=== PATIENT | female | born 1990 | race Hispanic/Latino ===

== ENCOUNTER 2023-03-13 14:14 | Observation (INO) | payer BC ==
[~2023-03-13] VITALS: Ht 152.4 cm; Wt 59.0 kg
[2023-03-13 14:26] VITALS: O2SAT 99
[2023-03-13] MEDS ORDERED: ONDANSETRON 4MG INJ 8 MG in 0.9%NACL 50ML 50 ML IVP PRN (15:00)
[2023-03-13] MEDS: LACTATED RINGERS 1000ML 1,000 ML IV SCH (15:23)
[2023-03-13 15:30] VITALS: BP 103/72
[2023-03-13] MEDS ORDERED: ONDANSETRON 4MG INJ IVP PRN (15:30)
[2023-03-13 16:22] LABS: INFLUENZA TYPE A Negative For Type A (NEGATIVE); INFLUENZA TYPE B Negative For Type B (NEGATIVE)
[2023-03-13] MEDS ORDERED: PANTOPRAZOLE 40 MG/VIAL IVP SCH (17:00)
[2023-03-13 19:50] VITALS: BP 109/67; PULSE 72; RESP 18
[2023-03-13 23:42] VITALS: BP 98/63; PULSE 61; RESP 16
[2023-03-14] MEDS: LACTATED RINGERS 1000ML 1,000 ML IV SCH ×2 (00:59→07:13)
[2023-03-14 03:45] VITALS: BP 106/58; PULSE 70; RESP 16
[2023-03-14 07:44] VITALS: BP 100/58; PULSE 70
== END 2023-03-14 11:30 | disposition home or self-care (01) ==
LOC: EDH 14:14 → WSH 14:15
PROVIDERS: ADMIT Obstetrics & Gynecology; ATTEND Obstetrics & Gynecology
DX: O21.0 Mild hyperemesis gravidarum (principal); Z20.822 Contact with and (suspected) exposure to COVID-19; Z3A.11 11 weeks gestation of pregnancy
CPT/HCPCS: 96374; 96361 ×3; 59025; 87804 ×2; 87426; 76801; G0378 ×20; C9113; J7120; 96360